=== PATIENT | female | born 1950 | race Caucasian/White ===

== ENCOUNTER 2021-04-20 19:53 | Emergency (ER) | payer MEDICARE, OTHER ==
[2021-04-20 21:40] LABS: BASOPHIL 0.4 % (0-2); EOSINOPHIL 2.8 % (0-7); HCT 39.3 % (37.0-47.0); HGB 12.3 g/dl (12.5-16.0); LYMPHOCYTE 11.3 % (15-48); MCH 27.6 pg (25.0-31.0); MCHC 31.3 g/dL (32.0-36.0); MCV 88.1 fL (78.0-100.0); MONOCYTE 4.7 % (0-12); MPV 10.7 fL (6.0-9.5); NEUTROPHIL 80.4 % (41-80); NRBC 0; PLT 260 K/uL (150-400); RBC 4.46 M/uL (4.20-5.40); RDW 14.1 % (11.5-14.0); WBC 10.5 K/uL (4.0-10.5)
[2021-04-20 21:48] LABS: BUN/CREAT RATIO (CALC) 18.3 RATIO; CREATININE 0.71 mg/dL (0.51-0.95); POTASSIUM 3.9 mmol/L (3.5-5.1)
[2021-04-20 21:52] LABS: LACTIC ACID 1.1 mmol/L (0.4-1.9)
== END 2021-04-20 22:50 | disposition home or self-care (01) ==
LOC: FER 19:53
PROVIDERS: Nurse Practitioner Family
DX: L03.116 Cellulitis of left lower limb (principal); I10 Essential (primary) hypertension; Z88.5 Allergy status to narcotic agent; Z79.899 Other long term (current) drug therapy
CPT/HCPCS: 36415; 80048; 83605; 85025; 87040; J0696; J1200; J2930

== ENCOUNTER 2021-12-23 14:56 | Emergency (ER) | payer MEDICARE ==
[2021-12-23 16:16] LABS: BASOPHIL 0.8 % (0-2); EOSINOPHIL 3.7 % (0-7); HCT 44.5 % (37.0-47.0); HGB 14.2 g/dl (12.5-16.0); LYMPHOCYTE 25.5 % (15-48); MCH 29.1 pg (25.0-31.0); MCHC 31.9 g/dL (32.0-36.0); MCV 91.2 fL (78.0-100.0); MONOCYTE 6.9 % (0-12); MPV 11.2 fL (6.0-9.5); NEUTROPHIL 62.9 % (41-80); NRBC 0; PLT 249 K/uL (150-400); RBC 4.88 M/uL (4.20-5.40); RDW 14.1 % (11.5-14.0); WBC 8.3 K/uL (4.0-10.5)
[2021-12-23 16:45] LABS: BUN/CREAT RATIO (CALC) 28.8 RATIO; CREATININE 2.08 mg/dL (0.51-0.95); POTASSIUM 3.5 mmol/L (3.5-5.1)
== END 2021-12-23 17:34 | disposition home or self-care (01) ==
LOC: FER 14:56
PROVIDERS: Nurse Practitioner Family
DX: E86.0 Dehydration (principal); I10 Essential (primary) hypertension; Z88.5 Allergy status to narcotic agent
CPT/HCPCS: 36415; 80048; 85025; 99283; J7030